=== PATIENT | male | born 1965 | race Caucasian/White ===

== ENCOUNTER 2016-12-03 23:56 | Emergency (ER) | payer SELFPAY ==
[2016-12-04] MEDS ORDERED: OXYCODONE-ACETAMINOPHEN 5-325 MG TABLET PO ONE (02:59)
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
[2016-12-04 03:41] VITALS: BP 124/82
== END 2016-12-04 03:50 | disposition home or self-care (01) ==
LOC: ER 23:56
DX: S69.91XA Unspecified injury of right wrist, hand and finger(s), initial encounter (principal); S00.01XA Abrasion of scalp, initial encounter; M25.511 Pain in right shoulder; R11.11 Vomiting without nausea; R07.81 Pleurodynia; F17.200 Nicotine dependence, unspecified, uncomplicated; W19.XXXA Unspecified fall, initial encounter
CPT/HCPCS: 99283